=== PATIENT | male | born 1985 | race African-American/Black ===

== ENCOUNTER 2017-07-29 15:15 | Emergency (ER) | payer OTHER ==
[~2017-07-29] VITALS: Ht 172.7 cm; Wt 81.6 kg
[~2017-07-29 15:15] MED LIST: IBUPROFEN800 M1 PO; KEFLEX500 MG PO; LEVSIN0.125 M1 PO; NAPROSYN 500 M500 MG PO; NORFLEX100 MG PO; TRAMADOL50 MG PO; ZOFRAN ODT4 M1 SL
[2017-07-29 16:23] LABS: ABSOLUTE BASOPHIL COUNT 0 /CUMM (0.0-0.2); ABSOLUTE EOSINOPHIL COUNT 0.1 /CUMM (0.0-0.7); ABSOLUTE GRANULOCYTE CT 2.2 /CUMM (1.4-6.5); ABSOLUTE MONOCYTE COUNT 0.5 /CUMM (0.10-0.60); BASOPHIL % 0.2 % (0.0-2.0); EOSINOPHIL % 1.6 % (0-5); GRANULOCYTE % 45.5 % (42.2-75.2); HEMATOCRIT 42.2 % (42-52); MEAN CORPUSCULAR HGB 33.8 PG (27.0-31.0); MEAN CORPUSCULAR VOLUME 99.4 FL (80.0-94.0); MEAN PLATELET VOLUME 8.4 FL (7.4-10.4); PLATELET COUNT 207 /CUMM (130-400); RBC DISTRIBUTION WIDTH 13.3 % (11.5-14.5); RED BLOOD CELL CT 4.25 /CUMM (4.70-6.10); WHITE BLOOD CELL COUNT 4.8 /CUMM (4.8-10.8)
[2017-07-29 17:20] VITALS: BP 116/68
[2017-07-29] MEDS ORDERED: ZOFRAN ODT4 M1 SL (17:32)
[2017-07-29] MEDS ORDERED: DICYCLOMINE HCL10 M1 PO (17:32)
--- NOTE | 2017-07-29 17:32 | ED GI/GU/ABDOMINAL COMPLAINT ---
History of Present Illness General Chief Complaint: Abdominal Pain/Flank Pain Stated Complaint: ABD PAIN Source: patient Exam Limitations: no limitations Vital Signs & Intake/Output Vital Signs & Intake/Output Vital Signs Date Time Temp Pulse Resp B/P B/P Pulse O2 O2 Flow FiO2 Mean Ox Delivery Rate 07/29 1754 Room Air 07/29 1720 98.4 74 16 116/68 94 Room Air 07/29 1532 98.4 81 16 122/77 98 Room Air Room Air Allergies Coded Allergies: lactose (LACTOSE INTOLERANT 07/29/17) Reconcile Medications Dicyclomine HCl 10 MG CAPSULE 1-2 CAP PO TID ABD SPASMS Hyoscyamine (Levsin) 0.125 MG TABLET 1-2 TAB PO Q6P PRN ABDOMINAL CRAMPS Ibuprofen 800 MG TABLET 1 TAB PO TID PRN PAIN Ondansetron (Zofran Odt) 4 MG TAB.RAPDIS 1 TAB SL Q6P PRN NAUSEA/VOMITING Ondansetron (Zofran Odt) 4 MG TAB.RAPDIS 1 TAB SL TID NAUSEA Triage Note: PT TO TRIAGE WITH N/V/D FOR 4 DAYS. DENIES FEVERS, DENIES PAIN. PT APPEARS IN TO DISTRESS AND STATES HE HAS BEEN HOLDINGH FLUIDS DOWN Triage Nurses Notes Reviewed? yes Onset: Abrupt Duration: minute(s): (4-5), day(s): Timing: recent history No Modifying Factors: none HPI: 32-year-old male comes into the emergency room for further evaluation of nausea vomiting and diarrhea has been going on for the past 4 days. The vomiting has stopped but she still feels nauseous. He reports some loose stool still. Denies any blood in his stool. Denies any abdominal pain. Denies any prior abdominal surgeries. Denies any other associated symptoms. Comes in for further evaluation. (Antonio Collins) Past History Travel History Traveled to [place] past 21 day No Medical History Any Pertinent Medical History? see below for history Neurological: NONE EENT: NONE Cardiovascular: NONE Respiratory: NONE Gastrointestinal: NONE Hepatic: NONE Renal: NONE Musculoskeletal: NONE Psychiatric: NONE Endocrine: NONE Blood Disorders: NONE Cancer(s): NONE PUMPER HAND/Reproductive: NONE Tetanus Vaccine: 11/07/14 Surgical History Surgical History: non-contributory Psychosocial History What is your primary language Tanzanian Tobacco Use: Current Daily Use Daily Tobacco Use Amount/Type: => 5 Cigarettes daily Family History Hx Contributory? No (Antonio Collins) Review of Systems Review of Systems Constitutional: Reports: no symptoms. EENTM: Reports: no symptoms. Respiratory: Reports: no symptoms. Cardiovascular: Reports: no symptoms. GI: Reports: see HPI. Genitourinary: Reports: no symptoms. Musculoskeletal: Reports: no symptoms. Skin: Reports: no symptoms. Neurological/Psychological: Reports: no symptoms. Hematologic/Endocrine: Reports: no symptoms. Immunologic/Allergic: Reports: no symptoms. All Other Systems: Reviewed and Negative (Antonio Collins) Physical Exam Physical Exam General Appearance: well developed/nourished, no apparent distress, alert, awake Head: atraumatic Eyes: Bilateral: normal appearance. Ears, Nose, Throat, Mouth: hearing grossly normal, moist mucous membrane Neck: normal inspection Respiratory: normal breath sounds, no respiratory distress Cardiovascular: regular rate/rhythm Gastrointestinal: soft, non-tender Back: normal inspection Extremities: normal range of motion Neurologic/Psych: awake, alert, oriented x 3 Skin: intact, normal color Core Measures ACS in differential dx? No Sepsis Present: No Sepsis Focused Exam Completed? No (Antonio Collins) Progress Differential Diagnosis: appendicitis, biliary colic, gastritis, Gastroenteritis Plan of Care: Orders Procedure Date/time Status LIPASE 07/29 1555 Complete COMPREHENSIVE METABOLIC PANEL 07/29 1555 Complete CBC WITHOUT DIFFERENTIAL 07/29 1555 Complete AMYLASE 07/29 1555 Complete Laboratory Tests 07/29/ 1605: Anion Gap 11, Estimated GFR > 60, BUN/Creatinine Ratio 16.4, Glucose 90, Calcium 9.9, Total Bilirubin 0.6, AST 42, ALT 35, Alkaline Phosphatase 63, Total Protein 7.3, Albumin 4.6, Globulin 2.7, Albumin/Globulin Ratio 1.7, Amylase 81, Lipase 175, CBC w Diff NO MAN DIFF REQ, RBC 4.25 L, MCV 99.4 H, MCH 33.8 H, MCHC 34.0, RDW 13.3, MPV 8.4, Gran % 45.5, Lymphocytes % 41.7, Monocytes % 11.0 H, Eosinophils % 1.6, Basophils % 0.2, Absolute Granulocytes 2.2, Absolute Lymphocytes 2.0, Absolute Monocytes 0.5, Absolute Eosinophils 0.1, Absolute Basophils 0 Initial ED EKG: none Comments: 07/29/2017 7:12:20 PM Patient clinically looks well. Patient is no apparent distress. Patient is nontoxic-appearing. No abdominal pain on exam. Symptoms are consistent with viral illness. Follow-up with primary care doctor as needed. Drink plenty of fluids. Blood work overall within normal limits. Patient understands and agrees with plan of care. (Antonio Collins) Departure Departure Disposition: HOME OR SELF CARE Condition: Stable Clinical Impression Primary Impression: Gastroenteritis Referrals: Patient Has No Primary Care Dr (PCP/Family) Additional Instructions: Take Bentyl and Zofran ODT as prescribed. Follow-up with her primary care doctor. Drink plenty of fluids. Return if any abdominal pain or any other concerns worsening symptoms. Please go over all results of today's visit with your primary care doctor. Contact your primary care doctor to let them know you were here in the emergency room. There may be nonspecific findings which may not be related to your visit today here in the emergency room but may require further evaluation and chronic monitoring by your primary care doctor. If you had a laceration today the chance of foreign body always remains. You should follow-up with your primary care doctor for recheck in 3-5 days for a wound check. If you had an x-ray done there is a chance that a fracture could have been missed on initial read and you should follow-up with your primary care doctor for repeat x-rays if symptoms persist. If your blood pressure was elevated here in the emergency room please have rechecked by [facility] primary care doctor within the next 48. If you were prescribed a narcotic here in the emergency room or any type of controlled substances you're not allowed to drive while taking this medication or operate any type of heavy machinery. Narcotics can make you feel lightheaded dizziness nausea and can cause constipation. You may need to cigar packer and picker a stool softener. Thank you for choosing [facility] emergency room. Please return to the emergency room immediately if you have any other concerns worsening of symptoms. Departure Forms: Customer Survey General Discharge Information Prescriptions: Current Visit Scripts Dicyclomine HCl 1-2 CAP PO TID #20 CAP Ondansetron (Zofran Odt) 1 TAB SL TID #10 TAB (Antonio Collins) PA/TELEVISION OPERATOR Co-Sign Statement Statement: ED Attending supervision documentation- I saw and evaluated the patient. I have also reviewed all the pertinent lab results and diagnostic results. I agree with the findings and the plan of care as documented in the PA's/TELEVISION OPERATOR's documentation. x I have reviewed the ED Record and agree with the PA's/TELEVISION OPERATOR's documentation. [] Additions or exceptions (if any) to the PAs/TELEVISION OPERATOR's note and plan are summarized below: [] (Bulmaro LAMAS,King)
== END 2017-07-29 17:55 ==
LOC: ERH 15:15
PROVIDERS: Physician Assistant Medical
DX: K52.9 Noninfective gastroenteritis and colitis, unspecified (principal); R11.2 Nausea with vomiting, unspecified; R19.7 Diarrhea, unspecified

== ENCOUNTER 2017-09-08 12:51 | Emergency (ER) | payer OTHER ==
[~2017-09-08 12:51] MED LIST changes: +DICYCLOMINE HCL10 M1 PO
[2017-09-08 12:58] VITALS: BP 125/62
--- NOTE | 2017-09-08 13:57 | RADIOLOGY REPORT ---
EXAMINATION: XR FOOT, RIGHT CLINICAL INFORMATION: Right great toe pain after trauma COMPARISON: None TECHNIQUE: AP, lateral, and oblique views of the right foot. 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 No fracture or malalignment. Soft tissues are swollen at the great toe. Small enthesopathic spurs are present at the Achilles tendon insertion and plantar fascial origin on the calcaneus. Fibular hallux sesamoid is relatively diminutive, likely developmental. IMPRESSION: No acute fracture or malalignment. Soft tissue swelling at the great toe
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
[2017-09-08] MEDS ORDERED: KEFLEX500 M1 PO (14:17)
[2017-09-08] MEDS ORDERED: IBUPROFEN800 M1 PO (14:17)
== END 2017-09-08 14:26 ==
LOC: ERH 12:51
DX: S90.111A Contusion of right great toe without damage to nail, initial encounter (principal); X58.XXXA Exposure to other specified factors, initial encounter; Y92.9 Unspecified place or not applicable; Y93.89 Activity, other specified
CPT/HCPCS: 73630-RT